=== PATIENT | female | born 1965 | race African-American/Black ===

== ENCOUNTER 2023-04-05 13:02 | Emergency (ER) | payer OTHER ==
[2023-04-05] MEDS ORDERED: Acetaminophen 325 MG TAB ONE (14:38)
== END 2023-04-05 14:41 | disposition home or self-care (01) ==
LOC: ERS 13:02
DX: S16.1XXA Strain of muscle, fascia and tendon at neck level, initial encounter (principal); I10 Essential (primary) hypertension; E11.9 Type 2 diabetes mellitus without complications; V49.9XXA Car occupant (driver) (passenger) injured in unspecified traffic accident, initial encounter
CPT/HCPCS: 70450; 72125

== ENCOUNTER 2024-01-18 08:59 | Outpatient (CLI) | payer OTHER | END 2024-01-18 09:00 | disposition home or self-care (01) | LOC: DTY/OP 08:59 | PROVIDERS: ATTEND Family Medicine | DX: E11.9 Type 2 diabetes mellitus without complications (principal) | CPT/HCPCS: 97802 ==